=== PATIENT | male | born 1960 | race Caucasian/White ===

== ENCOUNTER → 2017-11-28 | Outpatient (CLI) | payer BC ==
[2017-11-28 08:36] LABS: Basophils % (A) 1 %; Eosinophils # (A) 0.2 k/uL (0-0.7); Eosinophils % (A) 4 %; HCT 49.1 % (39.0-53.0); HGB 16.3 gm/dL (13.0-17.5); Lymphocytes # (A) 1.6 k/uL (1.0-4.8); Lymphocytes % (A) 31 %; MCH 31.3 pg (25.0-35.0); MCHC 33.2 g/dL (31.0-37.0); MCV 94.3 fL (80.0-100.0); Mean Platelet Volume 6.1; Monocytes # (A) 0.5 k/uL (0-1.0); Monocytes % (A) 9 %; Neutrophils # (A) 2.9 k/uL (1.3-7.7); Neutrophils % (A) 54 %; Platelet Count 195 k/uL (150-450); RDW 12.8 % (11.5-15.5); WBC 5.3 k/uL (3.8-10.6)
[2017-11-28 08:51] LABS: ALT 69 U/L (21-72); AST 34 U/L (17-59); Alkaline Phosphatase 99 U/L (38-126); Anion Gap 11 mmol/L; Blood Urea Nitrogen 20 mg/dL (9-20); Calcium 9.3 mg/dL (8.4-10.2); Carbon Dioxide 21 mmol/L (22-30); Chloride 109 mmol/L (98-107); Cholesterol 137 mg/dL (<200); Glucose 106 mg/dL (74-99); HDL Cholesterol 42 mg/dL (40-60); LDL Cholesterol,Calculated 67 mg/dL (0-99); Potassium 4.2 mmol/L (3.5-5.1); Sodium 141 mmol/L (137-145); Total Bilirubin 0.7 mg/dL (0.2-1.3); Total Protein 6.6 g/dL (6.3-8.2); Triglycerides 141 mg/dL (<150)
[2017-11-28 09:07] LABS: T4, Free (Free Thyroxine) 0.87 ng/dL (0.78-2.19)
[2017-11-28 09:23] LABS: Prostate Specific Antigen 1.86 ng/mL (0.00-4.00)
== END | disposition home or self-care (01) ==
LOC: LABWHC1 07:53
PROVIDERS: ATTEND Internal Medicine
DX: Z00.00 Encounter for general adult medical examination without abnormal findings (principal); E78.5 Hyperlipidemia, unspecified; I10 Essential (primary) hypertension
CPT/HCPCS: 36415; 80053; 80061; 84153; 84439; 84443; 85025

== ENCOUNTER → 2019-02-06 | Outpatient (CLI) | payer BC ==
[2019-02-06 10:37] LABS: Basophils # (A) 0.1 k/uL (0-0.2); Basophils % (A) 1 %; Eosinophils # (A) 0.2 k/uL (0-0.7); Eosinophils % (A) 4 %; HCT 49.8 % (39.0-53.0); HGB 16.6 gm/dL (13.0-17.5); Lymphocytes # (A) 1.8 k/uL (1.0-4.8); Lymphocytes % (A) 33 %; MCH 31.9 pg (25.0-35.0); MCHC 33.3 g/dL (31.0-37.0); MCV 95.9 fL (80.0-100.0); Monocytes # (A) 0.4 k/uL (0-1.0); Monocytes % (A) 7 %; Neutrophils % (A) 55 %; Platelet Count 200 k/uL (150-450); RBC 5.19 m/uL (4.30-5.90); RDW 13.8 % (11.5-15.5); WBC 5.5 k/uL (3.8-10.6)
[2019-02-06 11:53] LABS: African American GFR (CKD) 109.5 (60.0-200.0); Albumin 4.4 g/dL (3.80-4.90); Albumin/Globulin Ratio 2.2 (1.60-3.17); Anion Gap 7.2 mmol/L (4.00-12.00); BUN/Creat Ratio 18.89 Ratio (12.00-20.00); Calcium 9.5 mg/dL (8.7-10.3); Carbon Dioxide 24.8 mmol/L (21.6-31.8); Chol/HDL Ratio 3.36; LDL Cholesterol,Calculated 75.4 mg/dL (0.0-131.0); Potassium 4.1 mmol/L (3.5-5.5); Total Bilirubin 0.8 mg/dL (0.2-1.2); Total Protein 6.4 g/dL (6.2-8.2); VLDL Calculation 23.6 mg/dL (5.00-40.00)
[2019-02-06 12:03] LABS: T4, Free (Free Thyroxine) 1.1 ng/dL (0.80-1.80)
== END | disposition home or self-care (01) ==
LOC: LABWHC1 07:43
PROVIDERS: ATTEND Internal Medicine
DX: Z00.00 Encounter for general adult medical examination without abnormal findings (principal); E78.5 Hyperlipidemia, unspecified; I10 Essential (primary) hypertension; Z12.5 Encounter for screening for malignant neoplasm of prostate
CPT/HCPCS: 36415; 80053; 80061; 84153; 84439; 84443; 85025

== ENCOUNTER → 2019-12-24 | Outpatient (CLI) | payer BC ==
[2019-12-24 09:33] LABS: Basophils % (A) 0 %; Eosinophils # (A) 0.2 k/uL (0-0.7); Eosinophils % (A) 5 %; HCT 50.5 % (39.0-53.0); HGB 16.6 gm/dL (13.0-17.5); Lymphocytes # (A) 1.5 k/uL (1.0-4.8); Lymphocytes % (A) 32 %; MCHC 32.9 g/dL (31.0-37.0); MCV 97.2 fL (80.0-100.0); Mean Platelet Volume 6.8; Monocytes # (A) 0.3 k/uL (0-1.0); Monocytes % (A) 7 %; Neutrophils # (A) 2.4 k/uL (1.3-7.7); Neutrophils % (A) 53 %; Platelet Count 171 k/uL (150-450); RBC 5.19 m/uL (4.30-5.90); RDW 12.1 % (11.5-15.5); WBC 4.5 k/uL (3.8-10.6)
[2019-12-24 17:21] LABS: T4, Free (Free Thyroxine) 1.1 ng/dL (0.80-1.80)
[2019-12-24 17:31] LABS: African American GFR (CKD) 108.7 (60.0-200.0); Albumin 4.4 g/dL (3.80-4.90); Anion Gap 8.1 mmol/L (4.00-12.00); BUN/Creat Ratio 17.78 Ratio (12.00-20.00); Calcium 9.6 mg/dL (8.7-10.3); Carbon Dioxide 22.9 mmol/L (21.6-31.8); Chol/HDL Ratio 3.33; Globulin 2.2 g/dL (1.6-3.3); LDL Cholesterol,Calculated 50.2 mg/dL (0.0-131.0); Non-African American GFR(CKD) 93.8 (60.0-200.0); PSA Annual Screen 1.9 ng/mL (0.0-4.0); Potassium 4.2 mmol/L (3.5-5.5); Total Bilirubin 0.9 mg/dL (0.2-1.2); Total Protein 6.6 g/dL (6.2-8.2); VLDL Calculation 19.8 mg/dL (5.00-40.00)
== END | disposition home or self-care (01) ==
LOC: LABWHC1 08:16
PROVIDERS: ATTEND Internal Medicine
DX: Z00.00 Encounter for general adult medical examination without abnormal findings (principal); J45.20 Mild intermittent asthma, uncomplicated; I10 Essential (primary) hypertension; J30.2 Other seasonal allergic rhinitis; N40.0 Benign prostatic hyperplasia without lower urinary tract symptoms; E78.00 Pure hypercholesterolemia, unspecified; Z12.5 Encounter for screening for malignant neoplasm of prostate
CPT/HCPCS: 84439; 80061; 80053; 84443; 85025; 36415; G0103

== ENCOUNTER 2020-01-04 19:33 | Observation (INO) | payer BC ==
--- NOTE | 2020-01-04 19:52 | ED ---
Chest Pain HPI - General Source: patient Mode of arrival: ambulatory Limitations: no limitations <Sunny Denton - Last Filed: 01/04/20 21:02> <Allison Estrella - Last Filed: 01/06/20 15:01> - General Chief Complaint: Chest Pain Stated Complaint: Chest Pains Time Seen by Provider: 01/04/20 19:43 - Related Data Home Medications Medication Instructions Recorded Confirmed Albuterol Inhaler [Ventolin Hfa 2 puff INHALATION RT-Q4H PRN 01/04/20 01/04/20 Inhaler] Budesonide/Formoterol Fumarate 2 puff INHALATION RT-BID PRN 01/04/20 01/04/20 [Symbicort 160-4.5 Mcg Inhaler] Cetirizine HCl 10 mg PO DAILY 01/04/20 01/04/20 Montelukast [Singulair] 10 mg PO HS 01/04/20 01/04/20 Omeprazole 20 mg PO HS 01/04/20 01/04/20 Simvastatin [Zocor] 20 mg PO DAILY 01/04/20 01/04/20 Tamsulosin [Flomax] 0.8 mg PO HS 01/04/20 01/04/20 Triamcinolone Acetonide [Nasacort] 2 spray EA NOSTRIL BID PRN 01/04/20 01/04/20 amLODIPine [Norvasc] 10 mg PO DAILY 01/04/20 01/04/20 Allergies Allergy/AdvReac Type Severity Reaction Status Date / Time Penicillins Allergy Unknown Verified 01/04/20 21:26 Childhood Review of Systems ROS Other: All systems not noted in ROS Statement are negative. <Sunny Denton - Last Filed: 01/04/20 21:02> ROS Other: All systems not noted in ROS Statement are negative. <Allison Estrella - Last Filed: 01/06/20 15:01> ROS Statement: Those systems with pertinent positive or pertinent negative responses have been documented in the HPI. EKG Findings - EKG Comments: EKG Findings:: EKG shows sinus a 61, CT 178 QRS 96 QTc 406 <Sunny Denton - Last Filed: 01/04/20 21:02> - EKG Comments: EKG Findings:: Repeat EKG was performed due to concern for bradycardia. EKG was given to me as previous physician has left. Rate of 63. CT interval 186. QRS 94. QTC of 425. No acute ST segment elevations or depressions concerning for ischemic changes <Allison Estrella - Last Filed: 01/06/20 15:01> Past Medical History Past Medical History: Asthma, GERD/Reflux, Hyperlipidemia, Hypertension, Prostate Disorder History of Any Multi-Drug Resistant Organisms: None Reported Additional Past Surgical History / Comment(s): nasal surgery, shoulder surgery. Past Psychological History: No Psychological Hx Reported Smoking Status: Never smoker Past Alcohol Use History: Occasional Past Drug Use History: None Reported <Sunny Denton - Last Filed: 01/04/20 21:02> General Exam Limitations: no limitations <Sunny Denton - Last Filed: 01/04/20 21:02> Course Vital Signs 01/04/20 01/04/20 01/04/20 19:35 19:51 20:58 Temperature 98.1 F Pulse Rate 66 57 L Pulse Rate [ 71 Stable Attendant ] Respiratory 16 16 Rate Blood Pressure 127/83 124/80 Blood Pressure [Left Arm] O2 Sat by Pulse 98 97 Oximetry 01/04/20 01/05/20 01/05/20 22:56 05:00 09:00 Temperature 98.1 F Pulse Rate 52 L 51 L Pulse Rate [ 53 L Stable Attendant ] Respiratory 18 16 16 Rate Blood Pressure 125/79 116/79 Blood Pressure [Left Arm] O2 Sat by Pulse 97 96 Oximetry 01/05/20 09:01 Temperature 97.9 F Pulse Rate Pulse Rate [ 53 L Stable Attendant ] Respiratory 16 Rate Blood Pressure Blood Pressure 128/82 [Left Arm] O2 Sat by Pulse 97 Oximetry Chest Pain MDM <Allison Estrella - Last Filed: 01/06/20 15:01> - MDM I was asked to evaluate an EKG completed on the patient after the caring physician had left. EKG not changed from previous. (Allison Estrella) Disposition Is patient prescribed a controlled substance at d/c from ED?: No <Sunny Denton - Last Filed: 01/04/20 21:02> <Allison Estrella - Last Filed: 01/06/20 15:01> Clinical Impression: Atypical chest pain, Chest pain Disposition: ADMITTED IP TO THIS HOSP Condition: Undetermined
[2020-01-04 20:03] LABS: Basophils % (A) 1 %; Eosinophils # (A) 0.2 k/uL (0-0.7); Eosinophils % (A) 4 %; HCT 50.8 % (39.0-53.0); HGB 16.8 gm/dL (13.0-17.5); Lymphocytes # (A) 1.7 k/uL (1.0-4.8); Lymphocytes % (A) 34 %; MCH 31.2 pg (25.0-35.0); MCHC 33.1 g/dL (31.0-37.0); MCV 94.2 fL (80.0-100.0); Mean Platelet Volume 7.1; Monocytes # (A) 0.4 k/uL (0-1.0); Monocytes % (A) 8 %; Neutrophils # (A) 2.6 k/uL (1.3-7.7); Neutrophils % (A) 52 %; Platelet Count 181 k/uL (150-450); RDW 12.1 % (11.5-15.5)
--- NOTE | 2020-01-04 20:10 | XR ---
EXAMINATION TYPE: XR chest 2V DATE OF EXAM: 01/04/2020 COMPARISON: October 02, 2018 HISTORY: Cough TECHNIQUE: 2 views FINDINGS: Heart and mediastinum are normal. Lungs are clear. Diaphragm is normal. Bony thorax appears normal. IMPRESSION: Normal chest. No change.
[2020-01-04 20:12] LABS: ALT 32 U/L (4-49); AST 29 U/L (17-59); African American GFR (CKD) >90 (>60 ml/min/1.73 sqM); Albumin 4.6 g/dL (3.5-5.0); Alkaline Phosphatase 103 U/L (38-126); Anion Gap 10 mmol/L; Blood Urea Nitrogen 17 mg/dL (9-20); Calcium 9.4 mg/dL (8.4-10.2); Carbon Dioxide 22 mmol/L (22-30); Chloride 107 mmol/L (98-107); Glucose 116 mg/dL (74-99); Magnesium 2.3 mg/dL (1.6-2.3); Non-African American GFR(CKD) >90 (>60 ml/min/1.73 sqM); Potassium 4.5 mmol/L (3.5-5.1); Sodium 139 mmol/L (137-145); Total Bilirubin 0.8 mg/dL (0.2-1.3); Total Protein 7.3 g/dL (6.3-8.2)
[2020-01-04 20:24] LABS: D-Dimer <0.17 mg/L FEU (<0.60); Partial Thromboplastin Time 26.3 sec (22.0-30.0); Prothrombin Time 10.5 sec (9.0-12.0)
[2020-01-04] MEDS ORDERED: NITROGLYCERIN SL TABS 0.4 MG TAB SUBLINGUAL PRN (21:03)
[2020-01-04] MEDS ORDERED: ASPIRIN 81 MG PO STA (21:03)
[2020-01-05] MEDS ORDERED: ALBUTEROL NEBULIZED 2.5 MG/3 ML INHALATION PRN (00:02)
[2020-01-05] MEDS ORDERED: ALPRAZolam 0.25 MG TAB PO PRN (02:00)
[2020-01-05 03:11] LABS: Cholesterol 105 mg/dL (<200); HDL Cholesterol 34 mg/dL (40-60); LDL Cholesterol,Calculated 51 mg/dL (0-99); Triglycerides 101 mg/dL (<150)
--- NOTE | 2020-01-05 03:26 | HP ---
HISTORY AND PHYSICAL CHIEF COMPLAINT: Chest pain. HISTORY OF PRESENT ILLNESS: This 59-year-old gentleman with a past medical history of asthma, GERD, hypertension, hyperlipidemia, history of prostate disorder being followed by Dr. Hughes in the outpatient setting is complaining of chest pain. The pain was seated on the left side of the chest which is a feeling of almost acute twitching, multiple episodes. The patient was concerned. The patient came to [facility]. Patient also noted some bradycardia. The heart rate was going to even lower 50s and upper 40s especially with sleeping. The patient apparently had intentional weight loss about almost close to 100 pounds during the past last year and the patient has noticed that heart rate is going down along with losing weight. The initial troponins are negative and EKG which was personally reviewed by me showed sinus bradycardia 61 with normal sinus rhythm and nonspecific ST-T changes. Patient is being closely monitored at this time. There is no history of fever or rigors. No history of headache, loss of consciousness or seizures. PAST MEDICAL HISTORY: History of asthma, GERD, hypertension, hyperlipidemia, prostate disorder. MEDICATIONS: Medications are home medications are: 1. Norvasc. 2. Nasacort. 3. Flomax. 4. Zocor. 5. Omeprazole. 6. Singulair. 7. Cetirizine. 8. Symbicort. 9. Albuterol. Doses are reviewed. ALLERGIES: PENICILLIN. FAMILY HISTORY: No history of heart disease or strokes in the family. SOCIAL HISTORY: No history of smoking. Occasional alcohol intake. REVIEW OF SYSTEMS: ENT: No diminished hearing or diminished vision. CARDIOVASCULAR SYSTEM: As mentioned earlier. RESPIRATORY SYSTEM: As mentioned earlier. GI: No nausea. : No dysuria. NERVOUS SYSTEM: No numbness or weakness. ALLERGY/IMMUNOLOGY: As mentioned earlier. HEMATOLOGY: No history of anemia. ENDOCRINE: No history of diabetes mellitus or hypothyroidism. CONSTITUTIONAL: As mentioned earlier. DERMATOLOGY: Negative. RHEUMATOLOGY: Negative. PSYCHIATRY: As mentioned earlier. PHYSICAL EXAMINATION: The patient is alert and oriented x3. Pulse is 57, blood pressure 124/80, respirations 16, temperature 98.1, pulse ox 97% on room air. HEENT: Conjunctivae normal. Oral mucosa moist. NECK: No jugular venous distention. No carotid bruit. No lymph node enlargement. CARDIOVASCULAR: S1, S2 muffled. No S3, no S4. RESPIRATORY: Breath sounds diminished at the bases. No No rhonchi. No crackles. ABDOMEN: Soft, nontender, obese. No mass palpable. LEGS: No edema, no swelling. NERVOUS SYSTEM: Higher functions as mentioned earlier. Moves all 4 limbs. No focal motor or sensory deficits. LYMPHATICS: No lymphadenopathy of the neck, axillae or groin. SKIN: No ulcer, rash or bleeding. JOINTS: No active deforming arthropathy. LABS: CBC within normal limits. Glucose 116. Other labs are noted. ASSESSMENT: 1. Left-sided chest pain, possible coronary artery disease, rule out unstable angina. 2. Bradycardia, sinus, rule out sick sinus syndrome. 3. Increased random blood sugar. 4. History of asthma. 5. History of gastroesophageal reflux disease. 6. Hypertension. 7. Hyperlipidemia. 8. History of prostate disorder. 9. History of recent weight loss. 10.History of shoulder surgery. RECOMMENDATIONS AND DISCUSSION: This 59-year-old gentleman who presented with multiple medical issues, at this time I recommend to continue current medications, continue symptomatic treatment. Resume the home medications. Unstable angina protocol. Cardiology consultation. Continue with telemetry. Two-D echo with Doppler. Otherwise, prognosis guarded because of multiple complex medical issues. Further recommendations to follow. A copy of dictation forwarded to Dr. Hughes who is the primary physician. MMALEXL / IJN: [id number] /
[2020-01-05 05:26] VITALS: RESP 16
[2020-01-05] MEDS ORDERED: SYMBICORT 160-4.5 MCG INHALER INHALATION PRN (08:00)
[2020-01-05] MEDS ORDERED: ASPIRIN 325 MG TAB PO SCH (09:00)
[2020-01-05] MEDS ORDERED: amLODIPine 10 MG TAB PO SCH (09:00)
[2020-01-05] MEDS ORDERED: LORATADINE 10 MG TAB PO SCH (09:00)
[2020-01-05] MEDS ORDERED: ATORVASTATIN 10 MG TAB PO SCH (09:00)
[2020-01-05] MEDS ORDERED: FLUTICASONE 50MCG/SPRAY NASAL 16GM EA NOSTRIL PRN (09:00)
[2020-01-05 10:10] VITALS: BP 128/82; PULSE 53; TEMP 97.9
--- NOTE | 2020-01-05 13:02 | P.CRDCN ---
History of Present Illness History of present illness: HISTORY OF PRESENTING ILLNESS This is a pleasant 59-year-old male past medical history significant for hypertension, dyslipidemia, asthma and gastroesophageal reflux disease. He follows in the office with Dr White. We have been asked to see in consultation for chest pain. He is seen and examined sitting up in bed in no acute distress. He states for the previous couple of days he has been experiencing symptoms of what he describes as electrical waves in his chest in the midsternal region and then yesterday he felt a sharp sensation in the left precordial region. This is not associated with activity or exertion. It is not persistent potato did by oral intake. He has no associated shortness of breath, dizziness, nausea, vomiting, palpitations or diaphoresis. He is concerned his heart rate is going low while sleeping. He recently had a sleep study was inconclusive and he was advised weight loss. He has lost approximately 50 pounds intentionally. DIAGNOSTICS EKG reveals sinus mechanism heart rate of [address] or T wave abnormalities noted. Chest xray negative for an acute cardiopulmonary process. Laboratory reviewed, CBC unremarkable d-dimer less than 0.17, sodium 139, potassium 4.5, creatinine 0.82, magnesium 2.3, cardiac enzymes negative 3, NT proBNP 61, LDL 51. Current cardiac medications include simvastatin 20 mg daily and amlodipine 10 mg daily. REVIEW OF SYSTEMS At the time of my exam: CONSTITUTIONAL: Denies fever or chills. CARDIOVASCULAR: Denies chest pain, shortness of breath, orthopnea, PND or palpitations. RESPIRATORY: Denies cough. GASTROINTESTINAL: Denies abdominal pain, diarrhea, constipation, nausea or vomiting. MUSCULOSKELETAL: Denies myalgias. NEUROLOGIC: Denies numbness, tingling or weakness. ENDOCRINE: Denies fatigue, weight change, polydipsia or polyurina. GENITOURINARY: Denies burning, hematuria or urgency with micturation. HEMATOLOGIC: Denies history of anemia or bleeding. PHYSICAL EXAMINATION Blood pressure 128/82 heart rate 53 afebrile and maintaining oxygen saturation on room air is. CONSTITUTIONAL: No apparent distress. HEENT: Head is normocephalic. Pupils are equal, round. Sclerae anicteric. Mucous membranes of the mouth are moist. No JVD. No carotid bruit. CHEST EXAMINATION: Lungs are clear to auscultation. No chest wall tenderness is noted on palpation or with deep breathing. HEART EXAMINATION: Regular rate and rhythm. S1, S2 heard. No murmurs, gallops or rub. ABDOMEN: Soft, nontender. Positive bowel sounds. EXTREMITIES: 2+ peripheral pulses, no lower extremity edema and no calf te nderness. NEUROLOGIC EXAMINATION: Patient is awake, alert and oriented x3. ASSESSMENT Chest pain, atypical for angina. An acute coronary event has been ruled out. Resting bradycardia, asymptomatic Dyslipidemia Hypertension PLAN An acute coronary event has been ruled out. Symptoms are atypical for angina. No arrhythmias have been noted. Proceed with stress echocardiogram to assess for stress-induced cardiac ischemia. If stress test is normal he may be discharged to follow-up with Dr. Martinez in the office for further outpatient cardiac workup is warranted. Thank you kindly for this consultation. Nurse Practitioner note has been reviewed, I agree with a documented findings and plan of care. Patient was seen and examined. Past Medical History Past Medical History: Asthma, Chest Pain / Angina, GERD/Reflux, Hyperlipidemia, Hypertension, Osteoarthritis (OA), Prostate Disorder Additional Past Medical History / Comment(s): BPH, arthritis bilateral hands/fingers, seasonal allergies. History of Any Multi-Drug Resistant Organisms: None Reported Past Surgical History: Orthopedic Surgery Additional Past Surgical History / Comment(s): R shoulder rotator cuff repair, L index finger surgery to remove splinter, sinus surgery, colonoscopies, bilateral cataract removals/lens implants. Past Anesthesia/Blood Transfusion Reactions: No Reported Reaction Smoking Status: Former smoker - Past Family History Father Family Medical History: Coronary Artery Disease (CAD) Additional Family Medical History / Comment(s): Father had CABG. He lived to be 93/94 years old. Mother Family Medical History: Dementia, Diabetes Mellitus Additional Family Medical History / Comment(s): Diet controlled diabetes. Mother lived to be 94 yrs old. Medications and Allergies Home Medications Medication Instructions Recorded Confirmed Type Albuterol Inhaler [Ventolin Hfa 2 puff INHALATION RT-Q4H PRN 01/04/20 01/04/20 History Inhaler] Budesonide/Formoterol Fumarate 2 puff INHALATION RT-BID PRN 01/04/20 01/04/20 History [Symbicort 160-4.5 Mcg Inhaler] Cetirizine HCl 10 mg PO DAILY 01/04/20 01/04/20 History Montelukast [Singulair] 10 mg PO HS 01/04/20 01/04/20 History Omeprazole 20 mg PO HS 01/04/20 01/04/20 History Simvastatin [Zocor] 20 mg PO DAILY 01/04/20 01/04/20 History Tamsulosin [Flomax] 0.8 mg PO HS 01/04/20 01/04/20 History Triamcinolone Acetonide [Nasacort] 2 spray EA NOSTRIL BID PRN 01/04/20 01/04/20 History amLODIPine [Norvasc] 10 mg PO DAILY 01/04/20 01/04/20 History Allergies Allergy/AdvReac Type Severity Reaction Status Date / Time Penicillins Allergy Unknown Verified 01/04/20 21:26 Childhood Physical Exam Vitals: Vital Signs Temp Pulse Pulse Resp BP BP Pulse Ox 01/05/20 09:01 97.9 F 53 L 16 128/82 97 01/05/20 09:00 53 L 16 01/05/20 05:00 98.1 F 51 L 16 116/79 96 01/04/20 22:56 52 L 18 125/79 97 01/04/20 20:58 57 L 16 124/80 97 01/04/20 19:51 71 01/04/20 19:35 98.1 F 66 16 127/83 98 Intake and Output 01/04/20 01/05/20 01/05/20 22:59 06:59 14:59 Other: Voiding Method Toilet # Voids 2 Weight 96.162 kg 96.162 kg Results 01/04/20 19:49 01/04/20 19:49 Cardiac Enzymes 01/04/20 01/04/20 01/05/20 Range/Units 19:49 19:49 00:18 AST 29 (17-59) U/L Troponin I <0.012 <0.012 (0.000-0.034) ng/mL 01/05/20 Range/Units 02:39 AST (17-59) U/L Troponin I <0.012 (0.000-0.034) ng/mL Coagulation 01/04/20 Range/Units 19:49 PT 10.5 (9.0-12.0) sec APTT 26.3 (22.0-30.0) sec Lipids 01/05/20 Range/Units 02:39 Triglycerides 101 (<150) mg/dL Cholesterol 105 (<200) mg/dL HDL Cholesterol 34 L (40-60) mg/dL CBC 01/04/20 Range/Units 19:49 WBC 5.0 (3.8-10.6) k/uL RBC 5.40 (4.30-5.90) m/uL Hgb 16.8 (13.0-17.5) gm/dL Hct 50.8 (39.0-53.0) % Plt Count 181 (150-450) k/uL Comprehensive Metabolic Panel 01/04/20 Range/Units 19:49 Sodium 139 (137-145) mmol/L Potassium 4.5 (3.5-5.1) mmol/L Chloride 107 (98-107) mmol/L Carbon Dioxide 22 (22-30) mmol/L BUN 17 (9-20) mg/dL Creatinine 0.82 (0.66-1.25) mg/dL Glucose 116 H (74-99) mg/dL Calcium 9.4 (8.4-10.2) mg/dL AST 29 (17-59) U/L ALT 32 (4-49) U/L Alkaline Phosphatase 103 (38-126) U/L Total Protein 7.3 (6.3-8.2) g/dL Albumin 4.6 (3.5-5.0) g/dL Current Medications Generic Name Dose Route Start Last Admin Trade Name Freq PRN Reason Stop Dose Admin Albuterol Sulfate 2.5 mg 01/05/20 00:02 Ventolin Nebulized INHALATION RT-Q4H PRN Shortness Of Breath Alprazolam 0.25 mg 01/05/20 02:00 Xanax PO TID PRN Anxiety Amlodipine Besylate 10 mg 01/05/20 09:00 01/05/20 09:06 Norvasc PO 10 mg DAILY ZAHRA Administration Aspirin 325 mg 01/05/20 09:00 01/05/20 09:06 Aspirin PO 325 mg DAILY ZAHRA Administration Atorvastatin Calcium 10 mg 01/05/20 09:00 01/05/20 09:06 Lipitor PO 10 mg DAILY ZAHRA Administration Budesonide/Formoterol Fumarate 2 puff 01/05/20 08:00 Symbicort 160-4.5 Mcg Inhaler INHALATION RT-BID PRN Shortness Of Breath Fluticasone Propionate 2 spray 01/05/20 09:00 Flonase Nasal [place] EA NOSTRIL DAILY PRN Allergy Symptoms Loratadine 10 mg 01/05/20 09:00 01/05/20 09:06 Claritin PO 10 mg DAILY ZAHRA Administration Montelukast Sodium 10 mg 01/05/20 21:00 Singulair PO HS ZAHRA Nitroglycerin 0.4 mg 01/04/20 21:03 Nitrostat SUBLINGUAL Q5M PRN Chest Pain Pantoprazole Sodium 40 mg 01/05/20 21:00 Protonix PO HS ZAHRA Tamsulosin HCl 0.8 mg 01/05/20 21:00 Flomax PO HS ZAHRA Intake and Output 01/04/20 01/05/20 01/05/20 22:59 06:59 14:59 Other: Voiding Method Toilet # Voids 2 Weight 96.162 kg 96.162 kg Patient Weight 01/06/20 06:59 Weight 96.162 kg 01/04/20 19:49 01/04/20 19:49
--- NOTE | 2020-01-05 15:40 | ECHOS ---
STRESS ECHOCARDIOGRAM LUMASON: Vial INDICATIONS: Chest pain. MEDICATIONS: BASELINE HEART RATE: 66 BASELINE BLOOD PRESSURE: 129/80 MAXIMUM HEART RATE: 146 MAXIMUM BLOOD PRESSURE: 183/89 85% MPHR: 138 100% MPHR: METS: 11.5 MAXIMUM STAGE REACHED: 4 TOTAL EXERCISE TIME: 9:54 CLINICAL INFORMATION: Mr. Kirk is a 59-year-old male patient who presented with chest discomfort. He underwent an exercise stress echo, baseline heart rate 66 beats per minute. Baseline blood pressure 129/80 mmHg. Baseline 12-lead ECG showed normal sinus rhythm with normal cardiac intervals. Patient exercised on a Denzel protocol for 9 minutes 54 seconds achieving a peak heart rate of 154 beats per minute. No ECG evidence for ischemia. Occasional PVCs were noted. No other arrhythmias noted. Normal blood pressure response to exercise. There was no ECG evidence for ischemia other than occasional PVCs. No other arrhythmias were noted. The baseline 2D echo images showed normal LV size and systolic function without segmental wall motion abnormalities. At peak exercise, there was excellent augmentation of overall LV contractility without developing any wall motion abnormalities. At recovery, regional global LV systolic function remained normal. IMPRESSION: 1. No ECG or echocardiographic evidence for ischemia. 2. Good exercise capacity on a Denzel protocol. MMODL / IJN: [id number] /
[2020-01-05] MEDS ORDERED: PANTOPRAZOLE 40 MG TABLET PO SCH (21:00)
[2020-01-05] MEDS ORDERED: MONTELUKAST 10 MG TAB PO SCH (21:00)
[2020-01-05] MEDS ORDERED: TAMSULOSIN 0.4 MG CAP.ER.24H PO SCH (21:00)
--- NOTE | 2020-01-06 00:19 | DS ---
DISCHARGE SUMMARY DATE OF SERVICE: 01/05/2020 FINAL DIAGNOSES: 1. Left-sided chest pain possibly musculoskeletal with negative stress test. 2. Sinus bradycardia, resting, asymptomatic. 3. Increased random blood sugar. 4. History of asthma. 5. History of gastroesophageal reflux disease. 6. Hypertension. 7. Hyperlipidemia. 8. History of prostate disorder. 9. History of recent weight loss. 10.History of shoulder surgery. DISCHARGE DISPOSITION: Patient will be discharged in stable condition with guarded prognosis. HISTORY OF PRESENT ILLNESS: This 59-year-old gentleman with past medical history of multiple medical problems being followed by Dr. Hughes in the outpatient setting presented with chest pain, myocardial infarction ruled out. Cardiology performed a stress test which was reported as normal per the verbal report. Final official report is pending. Otherwise, patient improved significantly. On exam, vitals are stable. Cardiovascular: S1, S2. Abdomen soft. Nervous system: The patient had resting tachycardia and resting bradycardia which is slightly aggravated during sleeping according to him, but still asymptomatic. Recommend close followup with Cardiology and primary physician in the outpatient setting. DISCHARGE ADVICE AND MEDICATIONS: 1. Discharge diet is cardiac diet. 2. Activity limited until followup. 3. Follow up with Dr. Hughes in 1-2 days. 4. Follower with Dr. Chen as recommended. DISCHARGE MEDICATIONS: 1. Cetirizine 10 mg daily. 2. Flomax 0.8 q.h.s. 3. Nasacort. 4. Norvasc 10 mg daily. 5. Omeprazole 20 mg q.h.s. 6. Singulair 10 mg q.h.s. 7. Symbicort 1 to 2 puffs b.i.d. 8. Ventolin p.r.n. 9. Zocor 20 mg daily. Once again, the patient discharged in stable condition with guarded prognosis. MMODL / IJN: [id number] /
== END 2020-01-05 15:30 | disposition home or self-care (01) ==
LOC: EC 19:33 → 3NCARDOBS 21:04
PROVIDERS: ADMIT Hospitalist; ATTEND Hospitalist
DX: R07.89 Other chest pain (principal); R00.1 Bradycardia, unspecified; R00.0 Tachycardia, unspecified; R73.09 Other abnormal glucose; I10 Essential (primary) hypertension; J45.909 Unspecified asthma, uncomplicated; E78.5 Hyperlipidemia, unspecified; K21.9 Gastro-esophageal reflux disease without esophagitis; N40.0 Benign prostatic hyperplasia without lower urinary tract symptoms; M19.041 Primary osteoarthritis, right hand; M19.042 Primary osteoarthritis, left hand; Z20.828 Contact with and (suspected) exposure to other viral communicable diseases; Z79.51 Long term (current) use of inhaled steroids; Z79.899 Other long term (current) drug therapy; Z88.0 Allergy status to penicillin; Z98.42 Cataract extraction status, left eye; Z98.41 Cataract extraction status, right eye; Z96.1 Presence of intraocular lens; Z87.891 Personal history of nicotine dependence; Z82.49 Family history of ischemic heart disease and other diseases of the circulatory system; Z83.3 Family history of diabetes mellitus; Z81.8 Family history of other mental and behavioral disorders
CPT/HCPCS: 99285; 36415; 93005 ×2; 93351; 85379; 83880; 80061; 80053; 83690; 83735; 84484 ×2; 85025; 85610; 85730; 71046; G0378 ×2; U0003

== ENCOUNTER → 2021-05-29 | Outpatient (CLI) | payer BC ==
[2021-05-29 18:36] LABS: Basophils # (A) 0.03 X 10*3/uL (0.00-0.10); Basophils % (A) 0.5 %; Eosinophils # (A) 0.27 X 10*3/uL (0.04-0.35); Eosinophils % (A) 4.9 %; HCT 52.2 % (39.6-50.0); HGB 17.1 g/dL (13.0-17.0); Lymphocytes # (A) 1.57 X 10*3/uL (0.90-5.00); Lymphocytes % (A) 28.4 %; MCH 30.9 pg (27.0-32.0); MCHC 32.8 g/dL (32.0-37.0); MCV 94.4 fL (80.0-97.0); Mean Platelet Volume 9.5 fL (9.5-12.2); Monocytes # (A) 0.52 X 10*3/uL (0.20-1.00); Monocytes % (A) 9.4 %; Neutrophils # (A) 3.12 X 10*3/uL (1.80-7.70); Neutrophils % (A) 56.6 %; Platelet Count 218 X 10*3/uL (140-440); RBC 5.53 X 10*6/uL (4.40-5.60); RDW 11.9 % (11.5-14.5); WBC 5.52 X 10*3/uL (4.50-10.00)
[2021-05-29 20:08] LABS: ALT 33 U/L (10-49); AST 19 U/L (14-35); African American GFR (CKD) 102.9 (60.0-200.0); Albumin 4.5 g/dL (3.8-4.9); Albumin/Globulin Ratio 1.95 (1.60-3.17); Alkaline Phosphatase 87 U/L (41-126); BUN/Creat Ratio 16.86 Ratio (12.00-20.00); Blood Urea Nitrogen 15.7 mg/dL (9.0-27.0); Calcium 9.9 mg/dL (8.7-10.3); Carbon Dioxide 21.3 mmol/L (20.0-27.5); Chloride 105 mmol/L (96-109); Chol/HDL Ratio 3.08 Ratio; Globulin 2.3 g/dL (1.6-3.3); Glucose 94 mg/dL (70-110); LDL Cholesterol,Calculated 74.6 mg/dL (0.0-131.0); Non-African American GFR(CKD) 88.8 (60.0-200.0); Potassium 4.4 mmol/L (3.5-5.5); Sodium 140 mmol/L (135-145); Total Protein 6.7 g/dL (6.2-8.2)
== END | disposition home or self-care (01) ==
LOC: LABWHC1 10:25
PROVIDERS: ATTEND Internal Medicine
DX: Z00.00 Encounter for general adult medical examination without abnormal findings (principal); Z12.5 Encounter for screening for malignant neoplasm of prostate; I10 Essential (primary) hypertension; E78.5 Hyperlipidemia, unspecified
CPT/HCPCS: 84439; 80061; 80053; 84443; 85025; 36415; G0103

== ENCOUNTER → 2021-09-18 | Outpatient (CLI) | payer BC | END | disposition home or self-care (01) | LOC: LABWHC1 11:55 | PROVIDERS: ATTEND Urology | DX: R97.20 Elevated prostate specific antigen [PSA] (principal) | CPT/HCPCS: 36415; 84153 ==

== ENCOUNTER 2021-11-14 22:39 | Emergency (ER) | payer BC ==
[2021-11-14 22:42] VITALS: BP 139/92; PULSE 93; RESP 18; TEMP 98.1
[2021-11-15] MEDS ORDERED: BACITRACIN OINT 1 EACH PACKET TOPICAL ONE (00:51)
[2021-11-15] MEDS ORDERED: LIDOCAINE 1% INJ 10MG/ML (5 ML VIAL-PF) SQ ONE (00:51)
[2021-11-15] MEDS ORDERED: DIPH,PERTUS(ACELL)TETVAC-LF 0.5 ML VIAL IM ONE (01:50)
--- NOTE | 2021-11-15 01:55 | ED ---
General Adult HPI - General Chief complaint: Extremity Injury, Upper Stated complaint: fishhook in finger Time Seen by Provider: 11/14/21 23:46 Source: patient, RN notes reviewed Mode of arrival: ambulatory Limitations: no limitations - History of Present Illness Initial comments: 61-year-old male presents to the emergency department for removal of fishhook in the third digit of the right hand. Patient states this occurred approximately 3 hours ago. Complains of minimal discomfort aside from when he disturbs the hook. No loss of sensation. Last Tdap unknown. Denies any further injuries or complaints at this time. - Related Data Home Medications Medication Instructions Recorded Confirmed Albuterol Inhaler [Ventolin Hfa 2 puff INHALATION RT-Q4H PRN 01/04/20 01/04/20 Inhaler] Budesonide/Formoterol Fumarate 2 puff INHALATION RT-BID PRN 01/04/20 01/04/20 [Symbicort 160-4.5 Mcg Inhaler] Cetirizine HCl 10 mg PO DAILY 01/04/20 01/04/20 Montelukast [Singulair] 10 mg PO HS 01/04/20 01/04/20 Omeprazole 20 mg PO HS 01/04/20 01/04/20 Simvastatin [Zocor] 20 mg PO DAILY 01/04/20 01/04/20 Tamsulosin [Flomax] 0.8 mg PO HS 01/04/20 01/04/20 Triamcinolone Acetonide [Nasacort] 2 spray EA NOSTRIL BID PRN 01/04/20 01/04/20 amLODIPine [Norvasc] 10 mg PO DAILY 01/04/20 01/04/20 Allergies Allergy/AdvReac Type Severity Reaction Status Date / Time Penicillins Allergy Unknown Verified 11/14/21 22:43 Childhood Review of Systems ROS Statement: Those systems with pertinent positive or pertinent negative responses have been documented in the HPI. ROS Other: All systems not noted in ROS Statement are negative. Past Medical History Past Medical History: Asthma, GERD/Reflux, Hyperlipidemia, Hypertension, Prostate Disorder Additional Past Medical History / Comment(s): BPH, arthritis bilateral hands/fingers, seasonal allergies. History of Any Multi-Drug Resistant Organisms: None Reported Past Surgical History: Orthopedic Surgery Additional Past Surgical History / Comment(s): nasal surgery, shoulder surgery. Past Anesthesia/Blood Transfusion Reactions: No Reported Reaction Past Psychological History: No Psychological Hx Reported Smoking Status: Never smoker Past Alcohol Use History: Occasional Past Drug Use History: None Reported - Past Family History Father Family Medical History: Coronary Artery Disease (CAD) Additional Family Medical History / Comment(s): Father had CABG. He lived to be 93/94 years old. Mother Family Medical History: Dementia, Diabetes Mellitus Additional Family Medical History / Comment(s): Diet controlled diabetes. Mother lived to be 94 yrs old. General Exam Limitations: no limitations (Well-developed, well-nourished male in no acute distress. Initial temperature 98.1, pulse 93, respirations 18, blood pressure 139/92, pulse ox 97% on room air.) General appearance: alert, in no apparent distress Respiratory exam: Present: normal lung sounds bilaterally. Absent: respiratory distress, wheezes, rales, rhonchi, stridor Cardiovascular Exam: Present: regular rate, normal rhythm, normal heart sounds. Absent: systolic murmur, diastolic murmur, rubs, gallop, clicks GI/Abdominal exam: Present: soft, normal bowel sounds. Absent: distended, tenderness, guarding, rebound, rigid Right Forearm Wrist exam: Present: normal inspection, full ROM. Absent: tenderness, swelling Hand Wrist exam: Present: full ROM, other (Abiquiu embedded in the palmar surface of the distal phalanx, third digit on the right hand. ). Absent: swelling Vascular: Present: normal capillary refill, radial pulse. Absent: vascular compromise, Pallo Neurological exam: Present: alert, oriented X3, normal gait Psychiatric exam: Present: normal affect, normal mood Skin exam: Present: warm, dry, normal color Course Vital Signs 11/14/21 22:40 Temperature 98.1 F Pulse Rate 93 Respiratory 18 Rate Blood Pressure 139/92 O2 Sat by Pulse 97 Oximetry Procedures - Forgein Body Removal Soft Tissue Consent Obtained: verbal consent Site: other (Distal phalanx, third digit, right hand) Anesthetic Used: lidocaine 1% Amount (mLs): 2 (Digital block) Foreign Body Suspected: Fish Hook Foreign Body Removed: yes Foreign Body Removal Technique: Irrigation Patient Tolerated Procedure: well, no complications Additional Comments: Procedure was explained to patient. He verbalizes consent. Digital block performed with 1% lidocaine. Upon achievement of anesthetization, hook was pushed through, cut, and removed. Wound was irrigated. Bacitracin dressing applied. Wound care reviewed at length with the patient and spouse. They verbalized understanding. Medical Decision Making - Medical Decision Making 61-year-old male presents to the emergency department for removal of fishhook from the third digit of the right hand. Upon exam, patient is well-appearing and in no acute distress. Abiquiu is present on the palmar surface of the distal phalanx, third digit, right hand. Patient tolerating discomfort without need for pain medication. Digit was anesthetized and fishhook was removed without difficulty. Wound was irrigated, bacitracin dressing applied. Wound care reviewed at length with patient and spouse. Tdap Updated. Patient will be discharged home to follow up with his PCP for recheck in 48-72 hours. Return parameters discussed in detail. Patient and spouse verbalized understanding and agreed with this plan. Attending: Bertin. Disposition Clinical Impression: Fish hook in finger Disposition: HOME SELF-CARE Condition: Stable Instructions (If sedation given, give patient instructions): Finger Laceration (ED) Additional Instructions: Your Tdap (tetanus shot) was updated on this date. Soak wound 2-3 times daily in warm water Epsom salt bath. Applied bacitracin or triple antibiotic ointment to the wound and keep covered. May take Tylenol or Motrin if needed for pain or discomfort. Keep affected extremity elevated while at rest. Follow-up with your PCP for a recheck in 48 hours. Return to the emergency department with any new, worsening, or concerning symptoms. Is patient prescribed a controlled substance at d/c from ED?: No Referrals: Mansi Cantu MD [Primary Care Provider] - 1-2 days Time of Disposition: 01:54
== END 2021-11-15 02:05 | disposition home or self-care (01) ==
LOC: EC 22:39
DX: S60.454A Superficial foreign body of right ring finger, initial encounter (principal); J45.909 Unspecified asthma, uncomplicated; E78.5 Hyperlipidemia, unspecified; I10 Essential (primary) hypertension; K21.9 Gastro-esophageal reflux disease without esophagitis; Z23 Encounter for immunization; Z79.83 Long term (current) use of bisphosphonates; Z88.0 Allergy status to penicillin; W45.8XXA Other foreign body or object entering through skin, initial encounter
CPT/HCPCS: 90471; 90715; 99282

== ENCOUNTER → 2022-05-23 | Outpatient (CLI) | payer BC ==
[2022-05-23 15:40] LABS: Basophils # (A) 0.03 X 10*3/uL (0.00-0.10); Basophils % (A) 0.5 %; Eosinophils # (A) 0.23 X 10*3/uL (0.04-0.35); Eosinophils % (A) 4.1 %; HCT 51.2 % (39.6-50.0); HGB 16.8 g/dL (13.0-17.0); Immature Grans, Automated 0.2 %; MCH 31.1 pg (27.0-32.0); MCHC 32.8 g/dL (32.0-37.0); MCV 94.8 fL (80.0-97.0); Mean Platelet Volume 9.2 fL (9.5-12.2); Monocytes # (A) 0.56 X 10*3/uL (0.20-1.00); Monocytes % (A) 9.9 %; NRBC Per 100 WBC 0 /100 WBCS (0.0-0.0); Neutrophils # (A) 3.14 X 10*3/uL (1.80-7.70); Neutrophils % (A) 55.3 %; Platelet Count 203 X 10*3/uL (140-440); RDW 12.9 % (11.5-14.5); WBC 5.67 X 10*3/uL (4.50-10.00)
[2022-05-23 16:07] LABS: Chol/HDL Ratio 4.02 Ratio; LDL Cholesterol,Calculated 94.1 mg/dL (0.0-131.0)
[2022-05-23 16:08] LABS: ALT 31 U/L (10-49); AST 22 U/L (14-35); African American GFR (CKD) 98.1 (60.0-200.0); Albumin 4.3 g/dL (3.8-4.9); Albumin/Globulin Ratio 1.44 (1.60-3.17); Alkaline Phosphatase 100 U/L (41-126); BUN/Creat Ratio 18.17 Ratio (12.00-20.00); Blood Urea Nitrogen 17.5 mg/dL (9.0-27.0); Calcium 9.4 mg/dL (8.7-10.3); Carbon Dioxide 23.8 mmol/L (20.0-27.5); Chloride 106 mmol/L (96-109); Glucose 93 mg/dL (70-110); Non-African American GFR(CKD) 84.6 (60.0-200.0); Potassium 4.1 mmol/L (3.5-5.5); Sodium 140 mmol/L (135-145); Total Protein 7.2 g/dL (6.2-8.2)
== END | disposition home or self-care (01) ==
LOC: LABWHC1 08:17
PROVIDERS: ATTEND Internal Medicine
DX: Z00.00 Encounter for general adult medical examination without abnormal findings (principal); I10 Essential (primary) hypertension; J45.20 Mild intermittent asthma, uncomplicated; E78.00 Pure hypercholesterolemia, unspecified; K21.9 Gastro-esophageal reflux disease without esophagitis
CPT/HCPCS: 84439; 80061; 80053; 84443; 85025; 83036; 36415; G0103

== ENCOUNTER → 2023-06-14 | Outpatient (CLI) | payer BC | END | disposition home or self-care (01) | LOC: LABWHC1 07:52 | PROVIDERS: ATTEND Urology | DX: C61 Malignant neoplasm of prostate (principal) | CPT/HCPCS: 36415; 84153 ==

== ENCOUNTER → 2024-02-14 | Outpatient (CLI) | payer BC ==
[2024-02-14 10:21] LABS: Basophils # (A) 0.03 X 10*3/uL (0.00-0.10); Basophils % (A) 0.6 %; Eosinophils # (A) 0.21 X 10*3/uL (0.04-0.35); Eosinophils % (A) 3.9 %; HGB 16.5 g/dL (13.0-17.0); Lymphocytes # (A) 1.89 X 10*3/uL (0.90-5.00); Lymphocytes % (A) 35.3 %; MCH 31.9 pg (27.0-32.0); MCHC 34.4 g/dL (32.0-37.0); MCV 92.7 FL (80.0-97.0); Mean Platelet Volume 9.2 FL (9.5-12.2); Monocytes # (A) 0.64 X 10*3/uL (0.20-1.00); NRBC Per 100 WBC 0 X 10*3/uL (0.00-0.01); Neutrophils # (A) 2.57 X 10*3/uL (1.80-7.70); Platelet Count 210 X 10*3/uL (140-440); RBC 5.18 X 10*6/uL (4.40-5.60); RDW 12.6 % (11.5-14.5); WBC 5.35 X 10*3/uL (4.50-10.00)
[2024-02-14 10:39] LABS: ALT 29 U/L (10-49); AST 17 U/L (14-35); Albumin 4.2 g/dL (3.8-4.9); Albumin/Globulin Ratio 1.68 Ratio (1.60-3.17); Alkaline Phosphatase 95 U/L (41-126); BUN/Creat Ratio 16.11 Ratio (12.00-20.00); Blood Urea Nitrogen 14.5 mg/dL (9.0-27.0); Calcium 9.5 mg/dL (8.7-10.3); Carbon Dioxide 24.1 mmol/L (21.6-31.8); Chloride 107 mmol/L (96-109); Chol/HDL Ratio 3.54 Ratio; Globulin 2.5 g/dL (1.6-3.3); Glucose 106 mg/dL (70-110); Magnesium 2.2 mg/dL (1.5-2.4); Potassium 3.9 mmol/L (3.5-5.5); Prostate Specific Antigen 1.59 ng/mL (0.000-4.500); Sodium 142 mmol/L (135-145); Total Bilirubin 0.7 mg/dL (0.3-1.2); Total Protein 6.7 g/dL (6.2-8.2)
== END | disposition home or self-care (01) ==
LOC: LABWHC1 07:39
PROVIDERS: ATTEND Urology
DX: Z00.00 Encounter for general adult medical examination without abnormal findings (principal); I10 Essential (primary) hypertension; E78.5 Hyperlipidemia, unspecified; R97.20 Elevated prostate specific antigen [PSA]
CPT/HCPCS: 36415; 80053; 80061; 83735; 84153; 84439; 84443; 85025

== ENCOUNTER → 2024-03-09 | Outpatient (CLI) | payer BC ==
--- NOTE | 2024-03-09 08:42 | MR ---
EXAMINATION TYPE: MR Prostate wo/w con DATE OF EXAM: 03/09/2024 8:13 AM COMPARISON: None. CLINICAL INDICATION: Male, 64 years old with history of C61 MALIGNANT NEOPLASM OF PROSTATE; Prostate cancer TECHNIQUE: Multi-planar, multi-sequence imaging of the pelvis is performed prior to and following the uncomplicated administration of bolus intravenous gadolinium. CONTRAST: 11 Gadavist Interpretive Criteria: PI-RADS v2.1 SERUM PSA: 1.39 06/2023, 1.59 02/2024 SURGICAL PATHOLOGY: No data available. FINDINGS: Prostatic dimensions: 4.6 x 4.9 x 3.5 cm. "Bullet" Volume:51.63 (PSA density=0.03 ng/mL/mL) CENTRAL GLAND (Central and Transition Zones/CZ+TZ): Postsurgical changes with TURP noted. Multiple bilateral, heterogenous appearing hypertrophic stromal nodules, without suspicious lesion. M edian lobe hypertrophy with protrusion into the base of the bladder. (PI-RADS 2) PERIPHERAL ZONE (PZ): Bilateral linear, indistinct wedgelike areas of low ADC, and low T2 signal, No evidence of masslike a bnormality, or localized perfusional hypervascularity, to further suggest a focus of clinically signi ficant prostate cancer. (PI-RADS 2) SEMINAL VESICLES (SV): Symmetric and unremarkable. PERIPROSTATIC TISSUES: Unremarkable. LYMPH NODES: No enlarged pelvic lymph node. REMAINING PELVIS: Bladder wall is within normal limits given distention. No abnormal free or organized intrapelvic fluid collection. No pathologic bowel dilation or mural thickening. Colonic diverticula are present. Left fat containing inguinal hernia OSSEOUS STRUCTURES: No suspicious osseous abnormality. IMPRESSION: 1. No specific features for high-risk prostate cancer. Maximum PI-RADS score: 2. 2. Moderate BPH, estimated gland volume 51.63 mL. 3. No suspicious osseous lesion. No lymphadenopathy. No evidence of prostate adenocarcinoma involving the periprostatic tissues. 4. Post TURP changes to the prostate gland. [facility], Workstation: [id number], 03/09/2024 8:40 AM
== END | disposition home or self-care (01) ==
LOC: RADMRIMAIN 06:45
PROVIDERS: ATTEND Urology
DX: C61 Malignant neoplasm of prostate
CPT/HCPCS: 72197